=== PATIENT | female | born 1965 | race Caucasian/White ===

== ENCOUNTER 2017-02-24 12:51 | Emergency (ER) | payer BC ==
[~2017-02-24] VITALS: Ht 170.2 cm; Wt 115.3 kg
[2017-02-24] MEDS ORDERED: LISINOPRIL20 MG PO (13:09)
[2017-02-24] MEDS ORDERED: METFORMIN HCL500 M1 PO (13:09)
[2017-02-24] MEDS ORDERED: ESCITALOPRAM OX20 MG PO (13:10)
[2017-02-24] MEDS ORDERED: LEXAPRO20 MG PO (13:10)
[2017-02-24 14:57] LABS: MCH 28.4 PG (29.0-34.0); MCHC 33.3 G/DL (30.0-36.0); MCV 85.5 FL (83-99); MEAN PLAT.VOLUME 9.4 uM^3 (9.5-12.4); PLATELET COUNT 266 K/uL (156-360); RBC DIS.WIDTH-CV 13.3 % (11.8-14.6); RBC DIS.WIDTH-SD 41.3 % (39-53); RED BLOOD COUNT 4.68 M/uL (3.80-5.20); WHITE BLOOD COUNT 8.2 K/uL (4.1-10.2)
[2017-02-24 15:07] LABS: CHLORIDE 108 mEq/L (99-109); POTASSIUM 3.7 mEq/L (3.7-5.4); SODIUM 140 mEq/L (136-147)
[2017-02-24 15:10] LABS: GLUCOSE 138 mg/dL (70-99)
[2017-02-24 15:11] LABS: ANION GAP 10 MEQ/L (2-14); TOTAL BILIRUBIN 0.5 mg/dL (0.0-1.0)
[2017-02-24 15:13] LABS: ALKALINE PHOSPHATASE 139 IU/L (3-129); GFR ESTIMATE (CALCULATED) > 59 mL/min/
[2017-02-24 15:14] LABS: UREA NITROGEN (BUN) 12 mg/dL (9-23)
[2017-02-24 15:18] LABS: ADD MIUA? YES; BILIRUBIN NEGATIVE; BLOOD SMALL; COLOR YELLOW ((YELLOW)); GLUCOSE (STRIP) NEGATIVE; KETONES NEGATIVE; LEUKOCYTES NEGATIVE; NITRITE NEGATIVE; PROTEIN (STRIP) NEGATIVE; SPECIFIC GRAVITY 1.018 (1.000-1.030); UROBILINOGEN 0.2 MG/DL (0.2-1.0)
[2017-02-24 15:24] LABS: BACTERIA RARE /HPF; EPITHELIAL CELLS RARE /HPF; MUCUS TRACE /LPF; RED BLOOD CELLS 0-5 /HPF (0-5); WHITE BLOOD CELLS 0-5 /HPF (0-5)
[2017-02-24] MEDS ORDERED: NAPROSYN500 MG PO (15:58)
[2017-02-24 16:15] VITALS: BP 125/72
== END 2017-02-24 16:30 | disposition home or self-care (01) ==
LOC: EME 12:51
PROVIDERS: Nurse Practitioner Family
DX: I10 Essential (primary) hypertension (principal); R51 Headache; E11.9 Type 2 diabetes mellitus without complications
CPT/HCPCS: 70450; 80053; 81003; 85027; 99281; 99284

== ENCOUNTER 2017-07-18 10:26 | Emergency (ER) | payer OTHER, BC ==
[~2017-07-18] VITALS: Ht 170.2 cm; Wt 118.2 kg
[~2017-07-18 10:26] MED LIST: ESCITALOPRAM OX20 MG PO; LEXAPRO20 MG PO; LISINOPRIL20 MG PO; METFORMIN HCL500 M1 PO; NAPROSYN500 MG PO
[2017-07-18] MEDS ORDERED: ULTRAM50 MG PO (11:42)
[2017-07-18] MEDS ORDERED: FLEXERIL10 MG PO (11:42)
[2017-07-18 11:54] VITALS: BP 134/85
== END 2017-07-18 11:58 | disposition home or self-care (01) ==
LOC: EME 10:26
DX: S16.1XXA Strain of muscle, fascia and tendon at neck level, initial encounter (principal); V49.40XA Driver injured in collision with unspecified motor vehicles in traffic accident, initial encounter; I10 Essential (primary) hypertension; E11.9 Type 2 diabetes mellitus without complications; Z79.84 Long term (current) use of oral hypoglycemic drugs
CPT/HCPCS: 72040; 99281; 99283

== ENCOUNTER → 2018-04-16 | Outpatient (CLI) | payer BC ==
[~2018-04-16] MED LIST changes: +FLEXERIL10 MG PO; +ULTRAM50 MG PO
== END | disposition home or self-care (01) ==
LOC: RAD 11:42
DX: R10.84 Generalized abdominal pain (principal)
CPT/HCPCS: 74019